=== PATIENT | male | born 1995 | race Two or more races ===

== ENCOUNTER 2024-11-16 21:16 | Emergency (ER) | payer MEDICAID, OTHER ==
[~2024-11-16] VITALS: Ht 182.9 cm; Wt 90.7 kg
[2024-11-16 21:17] VITALS: BP 145/116
[2024-11-16] MEDS ORDERED: NEOM28.37 TP (21:55)
[2024-11-16] MEDS ORDERED: TDAP DIPH,PERTUSS,TET VAC/PF 0.5 ML DISP.SYRIN IM ONE (21:58)
[2024-11-16] MEDS: TDAP DIPH,PERTUSS,TET VAC/PF 0.5 ML DISP.SYRIN IM ONE (22:01)
[2024-11-16 23:01] VITALS: BP 140/99; TEMP 97.9; O2SAT 99
== END 2024-11-16 23:02 | disposition home or self-care (01) ==
LOC: ER 21:16
DX: S61.012A Laceration without foreign body of left thumb without damage to nail, initial encounter (principal); S00.33XA Contusion of nose, initial encounter; F17.200 Nicotine dependence, unspecified, uncomplicated; V19.3XXA Pedal cyclist (driver) (passenger) injured in unspecified nontraffic accident, initial encounter; Y93.55 Activity, bike riding; Y92.89 Other specified places as the place of occurrence of the external cause; Y99.8 Other external cause status
CPT/HCPCS: 70450; 73130; 90715; A4606; A4663